=== PATIENT | female | born 1990 | race Caucasian/White ===

== ENCOUNTER 2017-09-17 04:48 | Emergency (ER) | payer BC ==
[~2017-09-17] VITALS: Ht 167.6 cm; Wt 54.9 kg
[2017-09-17 04:48] VITALS: BP_SYST 140
--- NOTE | 2017-09-17 05:20 | NUR ---
Pt alert and oriented x4. Pt C/O right sided headache and right eye pain and sensitivity to light for past 2 days. Denies any N/V/D. Pain is 7/10. No signs of SOB or acute distress noted. Will continue to monitor.
--- NOTE | 2017-09-17 05:31 | NUR ---
Patient to ER bed 8 to gown for evaluation. Side rails up. Report given to VICKY COLLIER.
--- NOTE | 2017-09-17 05:45 | NUR ---
ER MD PARRY AT BEDSIDE EXAMINING PATIENT.
[2017-09-17] MEDS: DIPHENHYDRAMINE INJ 50 MG/ML VIAL IM ONE (05:55)
[2017-09-17] MEDS: PROCHLORPERAZINE EDISYLATE 10 MG/2 ML VIAL IM ONE (05:56)
[2017-09-17 06:30] VITALS: BP_SYST 140
--- NOTE | 2017-09-17 06:30 | NUR ---
Patient given written and verbal discharge instructions and verbalizes understanding. ER MD Walton discussed with patient the results and treatment provided. Patient in stable condition. ID arm band removed. Rx of Compazine, and benadryl given. Patient educated on pain management and to follow up with PMD. Pain Scale 2/10. Opportunity for questions provided and answered.
== END 2017-09-17 06:30 | disposition home or self-care (01) ==
LOC: SED 04:48
DX: H53.149 Visual discomfort, unspecified (principal); G44.209 Tension-type headache, unspecified, not intractable; R03.0 Elevated blood-pressure reading, without diagnosis of hypertension
CPT/HCPCS: 81025; 96372; 99284; J0780; J1200